=== PATIENT | male | born 1965 | race African-American/Black ===

== ENCOUNTER 2018-06-13 18:45 | Emergency (ER) | payer MEDICAID ==
[~2018-06-13] VITALS: Ht 190.5 cm; Wt 100.0 kg
[2018-06-13 18:53] VITALS: Ht 190.5 cm; Wt 100.0 kg
[2018-06-13] MEDS ORDERED: GLUCOPHAGE500 MG PO (18:55)
[2018-06-13] MEDS ORDERED: BLOOD PRESSURE PILL (18:56)
[2018-06-13] MEDS ORDERED: STOMACH PILL (18:56)
[2018-06-13 19:34] LABS: BASOPHILS 0.4 % (0-2); EOSINOPHILS 3.8 % (0-7); HEMATOCRIT 43.8 % (42.0-54.0); HEMOGLOBIN 15.2 g/dL (13.5-17.5); IMMATURE GRANULOCYTES 0.1 % (0-5); LYMPHOCYTES 37.4 % (15-50); MCH 28.3 pg (26.0-34.0); MCHC 34.7 g/dL (31.0-37.0); MCV 81.6 fL (80.0-100.0); MEAN PLATELET VOLUME 9.6 fL (7.4-10.4); MONOCYTES 6.4 % (2-11); NEUTROPHILS 51.9 % (40-80); RBC 5.37 10x6/uL (4.20-6.10); RDW 14.3 % (11.5-14.5); WBC 7.3 10x3/uL (4.8-10.8)
[2018-06-13 19:54] LABS: ALBUMIN 3.3 g/dL (3.4-5.0); ANION GAP 13.7 mmol/L (8-16); BILIRUBIN - TOTAL 0.24 mg/dL (0.2-1.3); CALCIUM 8.3 mg/dL (8.5-10.1); CARBON DIOXIDE 25.2 mmol/L (21.0-32.0); CREATININE - SERUM 1.5 mg/dL (0.6-1.3); POTASSIUM - SERUM 3.9 mmol/L (3.5-5.1); PROTEIN - SERUM 7.1 g/dL (6.4-8.2)
[2018-06-13 20:00] LABS: PLATELET COUNT 245 10x3/uL (130-400)
[2018-06-13] MEDS ORDERED: MUCINEX DM ER1 EAC1 PO (20:40)
[2018-06-13] MEDS ORDERED: ZPAK PO (20:40)
[2018-06-13 20:54] VITALS: BP 154/95
== END 2018-06-13 20:56 | disposition home or self-care (01) ==
LOC: D.ER 18:45
PROVIDERS: Emergency Medicine
DX: J06.9 Acute upper respiratory infection, unspecified (principal); E11.9 Type 2 diabetes mellitus without complications; I10 Essential (primary) hypertension; F17.200 Nicotine dependence, unspecified, uncomplicated